=== PATIENT | female | born 1945 | race Two or more races ===

== ENCOUNTER 2021-04-07 05:35 | Day surgery (SDC) | payer OTHER ==
[~2021-04-07 05:35] MED LIST: ENALAPRIL MALEA10 MG PO; GABAPENTIN300 M2 PO; LEVO-T88 MCG PO; LIPITOR40 MG PO; LOSARTAN POTASS25 MG PO; OMEPRAZOLE40 MG PO; ZOLOFT50 MG PO
== END 2021-04-07 12:15 | disposition home or self-care (01) ==
LOC: CIR.AMB 05:35
PROVIDERS: ATTEND Specialist
DX: N90.1 Moderate vulvar dysplasia (principal); Z20.822 Contact with and (suspected) exposure to COVID-19